=== PATIENT | male | born 1955 ===

== ENCOUNTER 2018-01-10 10:15 | Emergency (ER) | payer MEDICARE, MEDICAID ==
[2018-01-10 10:15] VITALS: BMI 27.2
[2018-01-10 10:21] VITALS: BP 128/79; PULSE 83; TEMP 97
[2018-01-10] MEDS ORDERED: Lidocaine 1% Inj (20ml) ONE (11:26)
[2018-01-10] MEDS ORDERED: Tdap Vaccine 0.5 ml Vial (10-64 yrs) IM ONE ×2 (11:26→11:34)
--- NOTE | 2018-01-10 11:27 | ED PDOC ---
Upper Extremity Pain/Injury <Lamont Alonzo - Last Filed: 01/10/18 13:04> Additional Complaint(s): 62yo LHD M with PMHx HTN, HLD c/o left 2nd finger laceration. pt cut his own finger while using knife in the kitchen at 9AM. Ex-smoker, not currently smoking. Surgical h/o pacemaker, not on anticoagulants/aspirin/other blood thinners. Last tetanus vaccine unknown. <Erin Mitchell - Last Filed: 01/10/18 13:10> Time Seen by Provider: 01/10/18 10:51 Chief Complaint (Nursing): Upper Extremity Problem/Injury Supervising Attending Note - Supervising Attending Note The Documented history was done by the: Physician Budget Report Clerk, Attending Physician The documented physical exam was done by the: Physician Budget Report Clerk, Attending Physician The documented procedures were done by the: Physician Budget Report Clerk, Attending Physician - Attestation: I have personally seen and examined this patient.: Yes I have fully participated in the care of the patient.: Yes I have reviewed all pertinent clinical information: Yes <SeverianoLamont adkins - Last Filed: 01/10/18 13:04> Past Medical History Vital Signs: Last Vital Signs Temp 97 F L 01/10/18 10:55 Pulse 83 01/10/18 10:55 Resp 18 01/10/18 10:55 BP 128/79 01/10/18 10:55 Pulse Ox 98 01/10/18 11:57 <Lamont Alonzo - Last Filed: 01/10/18 13:04> Reviewed: Historical Data, Nursing Documentation, Vital Signs Vital Signs: Last Vital Signs Temp 97 F L 01/10/18 10:55 Pulse 83 01/10/18 10:55 Resp 18 01/10/18 10:55 BP 128/79 01/10/18 10:55 Pulse Ox 98 01/10/18 10:55 - Medical History PMH: Arthritis, HTN, Hypercholesterolemia - Surgical History Surgical History: Pacemaker (2016) - Family History Family History: States: No Known Family Hx - Social History Current smoker - smoking cessation education provided: No Alcohol: None Drugs: Denies <Erin Mitchell - Last Filed: 01/10/18 13:10> - Home Medications Home Medications: Ambulatory Orders Medication Instructions Recorded Allopurinol [Zyloprim] 100 mg PO DAILY 07/17/17 Fenofibrate [Fenoglide] 40 mg PO DAILY 07/17/17 Lisinopril [Zestril] 40 mg PO DAILY 07/17/17 Terazosin [Hytrin] 10 mg PO DAILY 07/17/17 - Allergies Allergies/Adverse Reactions: Allergies Allergy/AdvReac Type Severity Reaction Status Date / Time No Known Allergies Allergy Verified 07/17/17 08:12 Review of Systems ROS Statement: Except As Marked, All Systems Reviewed And Found Negative (left 2nd finger pain) < - Last Filed: 01/10/18 13:10> Physical Exam - Reviewed Nursing Documentation Reviewed: Yes Vital Signs Reviewed: Yes - Physical Exam Appears: Positive for: Well, No Acute Distress Head Exam: Positive for: ATRAUMATIC, NORMAL INSPECTION Skin: Positive for: Warm, Dry Eye Exam: Positive for: Normal appearance. Negative for: Conjunctival injection ENT: Positive for: Normal ENT Inspection Neck: Positive for: Normal, Supple Cardiovascular/Chest: Positive for: Regular Rate, Rhythm. Negative for: Murmur Respiratory: Positive for: Normal Breath Sounds. Negative for: Respiratory Distress Back: Positive for: Normal Inspection Extremity: Positive for: Capillary Refill (<2 sec), Other (left 2nd finger laceration along lateral volar surface, ~1 cm wide, 1-2mm deep, ) Neurologic/Psych: Positive for: Alert. Negative for: Motor/Sensory Deficits < - Last Filed: 01/10/18 13:10> - ECG O2 Sat by Pulse Oximetry: 98 < - Last Filed: 01/10/18 13:10> Medical Decision Making Medical Decision Makin DDx left 2nd finger laceration lac repair tetanus vaccine suture out in 12 days with PCP pt has PCP FU on 01/22/18 < - Last Filed: 01/10/18 13:10> Procedures - Laceration/Wound Repair Left Upper Distal Volar Finger Wound Length (cm): 1 Wound's Depth, Shape: linear Wound Explored: no foreign body removed Irrigated w/ Saline (ccs): 500 (tap water) Betadine Prep?: Yes Anesthesia: 1% Lidocaine Volume Anesthetic (ccs): 5 (digit block) Wound Debrided: minimal Wound Repaired With: Sutures Suture Size/Type: 5:0, proline Number of Sutures: 6 Layer Closure?: No Wound Complexity: Simple Splint Applied?: Yes (finger) <Erin Mitchell - Last Filed: 01/10/18 13:10> Disposition <Lamont Alonzo - Last Filed: 01/10/18 13:04> - Disposition Disposition: Routine/Home Disposition Time: 13:09 <Erin Mitchell - Last Filed: 01/10/18 13:10> - Clinical Impression Clinical Impression: Laceration of finger of left hand - Disposition Referrals: Hai Maloney MD [Staff Provider] - Condition: GOOD Additional Instructions: Follow up with your PCP for suture removal in 1 week. Instructions: Laceration Repair With Stitches (DC) Print Language: SOUTH AFR[place]
[2018-01-10 11:28] VITALS: RESP 18; O2SAT 98
[2018-01-10] MEDS ORDERED: Lidocaine 1% Inj (20ml) IJ ONE (11:35)
[2018-01-10] MEDS ORDERED: Povidone Iodine Topical 10% Sol ONE (12:20)
== END 2018-01-10 13:25 | disposition home or self-care (01) ==
LOC: H.ER 10:15
DX: S61.211A Laceration without foreign body of left index finger without damage to nail, initial encounter (principal); W26.0XXA Contact with knife, initial encounter; Y92.89 Other specified places as the place of occurrence of the external cause; E78.00 Pure hypercholesterolemia, unspecified; I10 Essential (primary) hypertension; Z95.0 Presence of cardiac pacemaker; Z23 Encounter for immunization